=== PATIENT | female | born 1970 | race American Indian/Alaskan Native ===

== ENCOUNTER 2017-02-09 12:42 | Emergency (ER) | payer SELFPAY ==
--- NOTE | 2017-02-09 12:50 | Emergency Department Report ---
Chief Complaint: Abdominal Pain Stated Complaint: LWR ABD PAIN/VAG ITCHING Time Seen by Provider: 02/09/17 12:47 - HPI History of Present Illness: PT c/o "pain in my belly bottom" - ROS Review of Systems: + dysuria lmp January 2017 - Exam Physical Exam: obese female steady gait no acute distress MSE screening note: Focused history and physical exam performed. Due to findings the following was ordered: labs ED Disposition for MSE Condition: Stable
[2017-02-09 12:51] VITALS: BP 151/89
[2017-02-09 14:05] LABS: Bilirubin,Urine NEG (Negative); Blood,Urine SM (Negative); Ketones,Urine NEG (Negative); Leukocyte Esterase,Urine NEG (Negative); Mucus,Urine FEW /HPF; Nitrite,Urine NEG (Negative); Protein,Urine <15 mg/dL mg/dL (Negative); Urobilinogen,Urine < 2.0 mg/dL (<2.0)
--- NOTE | 2017-02-09 14:51 | Emergency Department Report ---
ED Female HPI - General Chief complaint: Urogenital-Female Stated complaint: LWR ABD PAIN/VAG ITCHING Time Seen by Provider: 02/09/17 12:47 Source: patient Mode of arrival: Ambulatory Limitations: No Limitations - History of Present Illness Initial comments: Patient is a 47-year-old female who presents to ED with complains of vaginal itching and discharge for the past few days. Patient also reports of having painful urination. Relates of also had some suprapubic pain. Denies any emesis , diarrhea, constipation, hematochezia or any other symptoms. MD Complaint: vaginal discharge Onset/Timin -: Gradual, days(s) Radiation: non-radiating Severity: moderate Severity scale (0 -10): 6 Quality: cramping Consistency: intermittent Improves with: none Worsens with: urination Are you Now?: No Associated Symptoms: denies other symptoms, vaginal discharge, vaginal bleeding , abdominal pain (suprapubic cramping), dysuria. denies: nausea/vomiting, fever /chills, headaches, loss of appetite, hematuria, rash, seizure, shortness of breath, syncope, weakness - Related Data Sexually active: Yes Previous Rx's Medication Instructions Recorded Last Taken Type Lidocaine Viscous 2% [Xylocaine 15 ml MM Q4H PRN #240 ml 06/02/13 Unknown Rx Viscous 2%] Amoxicillin [Amoxicillin TAB] 875 mg PO BID #20 tablet 11/20/13 Unknown Rx HYDROcodone/APAP 5-325 [[place] 1 each PO Q6HR PRN #12 tablet 11/20/13 Unknown Rx 5/325 mg] predniSONE [Deltasone] 40 mg PO QDAY #10 tab 11/20/13 Unknown Rx Fluconazole [Diflucan TAB] 150 mg PO ONCE #1 tablet 02/09/17 Unknown Rx metroNIDAZOLE [Flagyl] 500 mg PO Q12HR #14 tab 02/09/17 Unknown Rx Allergies Allergy/AdvReac Type Severity Reaction Status Date / Time No Known Allergies Allergy Unverified 06/02/13 08:25 ED Review of Systems ROS: Stated complaint: LWR ABD PAIN/VAG ITCHING Other details as noted in HPI Constitutional: denies: chills, fever Respiratory: denies: cough, shortness of breath, wheezing Cardiovascular: denies: chest pain, palpitations Gastrointestinal: denies: abdominal pain, nausea, diarrhea Genitourinary: dysuria, frequency. denies: urgency, hematuria, discharge, abnormal menses, dyspareunia Neurological: denies: headache, weakness, paresthesias Psychiatric: denies: anxiety, depression ED Past Medical Hx - Past Medical History Previous Medical History?: No - Surgical History Past Surgical History?: Yes Additional Surgical History: - Social History Smoking Status: Never Smoker Substance Use Type: None - Medications Home Medications: Home Medications Medication Instructions Recorded Confirmed Last Taken Type Lidocaine Viscous 2% [Xylocaine 15 ml MM Q4H PRN #240 ml 06/02/13 Unknown Rx Viscous 2%] Amoxicillin [Amoxicillin TAB] 875 mg PO BID #20 tablet 11/20/13 Unknown Rx HYDROcodone/APAP 5-325 [[place] 1 each PO Q6HR PRN #12 tablet 11/20/13 Unknown Rx 5/325 mg] predniSONE [Deltasone] 40 mg PO QDAY #10 tab 11/20/13 Unknown Rx Fluconazole [Diflucan TAB] 150 mg PO ONCE #1 tablet 02/09/17 Unknown Rx metroNIDAZOLE [Flagyl] 500 mg PO Q12HR #14 tab 02/09/17 Unknown Rx ED Physical Exam - General Limitations: No Limitations General appearance: alert, in no apparent distress - Eye Eye exam: Present: normal appearance - Respiratory Respiratory exam: Present: normal lung sounds bilaterally. Absent: respiratory distress - Cardiovascular Cardiovascular Exam: Present: regular rate, normal rhythm. Absent: systolic murmur, diastolic murmur, rubs, gallop - GI/Abdominal GI/Abdominal exam: Present: soft, normal bowel sounds. Absent: distended, tenderness, guarding, rebound, rigid, diminished bowel sounds - External exam: Present: normal external exam. Absent: erythema, swelling, lesions, lacerations, ecchymosis, bleeding Speculum exam: Present: vaginal discharge. Absent: erythema, cervical discharge , vaginal bleeding, foreign body, tissue, laceration Bi-manual exam: Present: normal bi-manual exam. Absent: cervical motion tendernes, adnexal tenderness, adnexal mass, uterine enlargement, uterine tenderness - Neurological Exam Neurological exam: Present: alert, oriented X3 - Psychiatric Psychiatric exam: Present: normal affect, normal mood - Skin Skin exam: Present: warm, dry, intact, normal color. Absent: rash ED Course Vital Signs 02/09/17 12:49 Temperature 98.6 F Pulse Rate 84 Respiratory 16 Rate Blood Pressure 151/89 O2 Sat by Pulse 99 Oximetry ED Medical Decision Making - Medical Decision Making Nad, patient is resting comfortably. Wet prep reveasl < 20% clue cells. NO trich or yeast. UA does not reveal UTI. Will give flagyl and diflucan to go home wiht. Will also treat for possible std. advised follow up with [facility] in 2- 3 days. - Differential Diagnosis BV, vaginitis, dysuria, vaginal irritation Critical care attestation.: If time is entered above; I have spent that time in minutes in the direct care of this critically ill patient, excluding procedure time. ED Disposition Clinical Impression: BV (bacterial vaginosis) Vaginitis Qualifiers: Chronicity: acute Qualified Code(s): N76.0 - Acute vaginitis Disposition: - TO HOME OR SELFCARE Is pt being admited?: No Does the pt Need Aspirin: No Condition: Stable Instructions: Bacterial Vaginosis (ED) Prescriptions: Fluconazole [Diflucan TAB] 150 mg PO ONCE #1 tablet metroNIDAZOLE [Flagyl] 500 mg PO Q12HR #14 tab Referrals: LAURA ROWE MD [Staff Physician] - 3-5 Days Forms: STI Treatment and Prevention Time of Disposition: 16:54
[2017-02-09] MEDS ORDERED: XYLOCAINE 1% MPF 5 mL INFILTRATI ONE (16:19)
[2017-02-09] MEDS ORDERED: ZITHROMAX PO ONE (16:19)
[2017-02-09] MEDS ORDERED: ROCEPHIN IM ONE (16:19)
== END 2017-02-09 17:03 | disposition home or self-care (01) ==
LOC: ED 12:42
DX: N76.0 Acute vaginitis (principal); B96.89 Other specified bacterial agents as the cause of diseases classified elsewhere
CPT/HCPCS: 81001; 81025; 87210; 87591; 96372; 99284; J0696

== ENCOUNTER 2017-12-03 18:42 | Emergency (ER) | payer SELFPAY ==
[2017-12-03 19:16] LABS: Basophils % (Auto) 0.4 % (0.0-1.8); Eosinophils % (Auto) 0.6 % (0.0-4.3); Hematocrit 37.4 % (30.3-42.9); Hemoglobin 12.8 gm/dl (10.1-14.3); Lymphocytes # (Auto) 1.9 K/mm3 (1.2-5.4); Lymphocytes % (Auto) 27.6 % (13.4-35.0); Mean Corpuscular HGB Conc 34 % (30-34); Mean Corpuscular Hemoglobin 32 pg (28-32); Mean Corpuscular Volume 95 fl (79-97); Monocytes # (Auto) 0.5 K/mm3 (0.0-0.8); Monocytes % (Auto) 7.3 % (0.0-7.3); Platelet Count 360 K/mm3 (140-440); Red Blood Count 3.95 M/mm3 (3.65-5.03); Red Cell Distribution Width 14.6 % (13.2-15.2)
[2017-12-03 19:30] LABS: Alanine Aminotransferase 10 units/L (7-56); Albumin 4.3 g/dL (3.9-5); BUN/Creatinine Ratio 20; Blood Urea Nitrogen 12 mg/dL (7-17); Calcium 9.4 mg/dL (8.4-10.2); Hemolysis Index 3
--- NOTE | 2017-12-03 22:47 | Emergency Department Report ---
ED Abdominal Pain HPI - General Chief Complaint: Abdominal Pain Stated Complaint: ABD PAIN Time Seen by Provider: 12/03/17 22:46 Source: patient Mode of arrival: Ambulatory Limitations: No Limitations - History of Present Illness Initial Comments: Patient complains of intermittent sharp abdominal pain for the last day or so. Discomfort is localized in the upper right quadrant area, last a variable amount of time, generally minutes, but can be longer, and subsides also for verbal. Time, and can be gone hours without any exacerbation, and patient finds it difficult to express whether there is any particular association with food or not. She has had some increased belching, and on examination from [place] recently, where she lived until about a month ago, she reports that she was told at time of left inguinal hernia repair in May 2017, that she also had some gallstones as well, but she has not had a cholecystectomy. She has a history of gastritis and GERD, but this is predominantly a epigastric and esophageal burning sensation, which she has previously treated with antacids when she lived in [place]. She takes nothing for this now, having lived here over the past month. She also believes that this is related to having been prescribed venlafaxine for chronic depression, as she is told that she has anxiety disorder, and this was prescribed to control her symptoms. She felt like it has caused much of her symptoms, and she stopped taking it recently after several doses. She is not having the past couple of days. She has not had antidepressants on a chronic basis and has no prior history of antidepressant use. She's had some nausea, no vomiting, no diarrhea, no melena , no hematemesis, no hematochezia. Past medical history is significant for hernia repair, May 2017, with subsequent 70 pound weight loss as well. She also has a history of type 2 diabetes mellitus, controlled with metformin. MD Complaint: abdominal pain (epigastric and right upper quadrant) Onset/Timin -: Gradual, Sudden Location: RUQ Radiation: none Migration to: no migration Severity scale (0 -10): 7 Quality: cramping Consistency: intermittent Improves With: nothing Worsens With: eating Associated Symptoms: nausea. denies: vomiting, diarrhea, fever, chills, constipation, dysuria - Related Data Previous Rx's Medication Instructions Recorded Last Taken Type Lidocaine Viscous 2% [Xylocaine 15 ml MM Q4H PRN #240 ml 06/02/13 Unknown Rx Viscous 2%] Amoxicillin [Amoxicillin TAB] 875 mg PO BID #20 tablet 11/20/13 Unknown Rx HYDROcodone/APAP 5-325 [[place] 1 each PO Q6HR PRN #12 tablet 11/20/13 Unknown Rx 5/325 mg] predniSONE [Deltasone] 40 mg PO QDAY #10 tab 11/20/13 Unknown Rx Fluconazole [Diflucan TAB] 150 mg PO ONCE #1 tablet 02/09/17 Unknown Rx metroNIDAZOLE [Flagyl] 500 mg PO Q12HR #14 tab 02/09/17 Unknown Rx Dicyclomine [Bentyl] 10 mg PO QID PRN #20 capsule 12/03/17 Unknown Rx FLUoxetine HCL [Prozac] 10 mg PO DAILY #30 capsule 12/03/17 Unknown Rx Omeprazole 20 mg PO DAILY #30 tablet.dr 12/03/17 Unknown Rx Ondansetron [Zofran ODT TAB] 8 mg PO Q8HR PRN #10 tab.rapdis 12/03/17 Unknown Rx Allergies Allergy/AdvReac Type Severity Reaction Status Date / Time No Known Allergies Allergy Unverified 06/02/13 08:25 ED Review of Systems ROS: Stated complaint: ABD PAIN Other details as noted in HPI Comment: All other systems reviewed and negative Constitutional: denies: chills, diaphoresis, fever, malaise Eyes: denies: eye pain, eye discharge, vision change ENT: denies: ear pain, throat pain Respiratory: denies: cough, shortness of breath, wheezing Cardiovascular: denies: chest pain, palpitations Endocrine: no symptoms reported Gastrointestinal: as per HPI, abdominal pain (right upper quadrant), nausea. denies: vomiting Genitourinary: denies: urgency, dysuria Musculoskeletal: denies: back pain, joint swelling, arthralgia Skin: denies: rash, lesions Neurological: denies: headache, weakness, paresthesias Psychiatric: anxiety. denies: depression ED Past Medical Hx - Past Medical History Hx Diabetes: Yes Hx GERD: Yes - Surgical History Past Surgical History?: Yes Additional Surgical History: , Hernia surgery in [facility] 2018 - Social History Smoking Status: Never Smoker Substance Use Type: None - Medications Home Medications: Home Medications Medication Instructions Recorded Confirmed Last Taken Type Lidocaine Viscous 2% [Xylocaine 15 ml MM Q4H PRN #240 ml 06/02/13 Unknown Rx Viscous 2%] Amoxicillin [Amoxicillin TAB] 875 mg PO BID #20 tablet 11/20/13 Unknown Rx HYDROcodone/APAP 5-325 [[place] 1 each PO Q6HR PRN #12 tablet 11/20/13 Unknown Rx 5/325 mg] predniSONE [Deltasone] 40 mg PO QDAY #10 tab 11/20/13 Unknown Rx Fluconazole [Diflucan TAB] 150 mg PO ONCE #1 tablet 02/09/17 Unknown Rx metroNIDAZOLE [Flagyl] 500 mg PO Q12HR #14 tab 02/09/17 Unknown Rx Dicyclomine [Bentyl] 10 mg PO QID PRN #20 capsule 12/03/17 Unknown Rx FLUoxetine HCL [Prozac] 10 mg PO DAILY #30 capsule 12/03/17 Unknown Rx Omeprazole 20 mg PO DAILY #30 tablet. 12/03/17 Unknown Rx Ondansetron [Zofran ODT TAB] 8 mg PO Q8HR PRN #10 tab.rapdis 12/03/17 Unknown Rx ED Physical Exam - General Limitations: No Limitations General appearance: alert, in no apparent distress - Head Head exam: Present: atraumatic, normocephalic - Eye Eye exam: Present: PERRL, EOMI - ENT ENT exam: Present: mucous membranes moist - Neck Neck exam: Present: normal inspection, full ROM. Absent: tenderness, meningismus - Respiratory Respiratory exam: Present: normal lung sounds bilaterally. Absent: respiratory distress, wheezes, rhonchi - Cardiovascular Cardiovascular Exam: Present: regular rate, normal heart sounds. Absent: systolic murmur, diastolic murmur - GI/Abdominal GI/Abdominal exam: Present: soft, tenderness (predominant right upper quadrant, but no guarding, no rebound), normal bowel sounds. Absent: guarding, rebound - Rectal Rectal exam: Present: deferred - Extremities Exam Extremities exam: Present: normal inspection. Absent: pedal edema - Back Exam Back exam: Present: normal inspection. Absent: CVA tenderness (R), CVA tenderness (L) - Neurological Exam Neurological exam: Present: alert, oriented X3 - Psychiatric Psychiatric exam: Present: normal affect, normal mood - Skin Skin exam: Present: warm, dry. Absent: rash, abrasion, ecchymosis ED Course Vital Signs 12/03/17 12/03/17 18:47 22:51 Temperature 98.4 F Pulse Rate 74 Respiratory 16 18 Rate Blood Pressure 103/74 O2 Sat by Pulse 98 98 Oximetry ED Medical Decision Making - Lab Data Result diagrams: 12/03/17 19:08 12/03/17 19:07 - Medical Decision Making Patient has essentially benign examination, showing minimal discomfort to palpation in the right upper quadrant. Brief focused [id number] ultrasound examination was unrevealing, as gallbladder was not easily visualized, but there was no free fluid in Morison's pouch, and liver contours appear normal. No other examination was performed intra-abdominal A by ultrasound examination. Laboratory examination is unremarkable. Patient's laboratory finding is unremarkable, and she clearly feels that symptoms have been caused by her antidepressant, and when asked if she would like another antidepressant, she quickly accepted. We will start her on Prozac , at a moderate dose of 10 mg daily. She should follow with local health clinic , but she has no routine physician here. Given she also has symptoms of GERD, we will start her on omeprazole, and I will give her symptomatic treatment with Bentyl, ondansetron, and bland diet. - Differential Diagnosis GERD, cholecystitis, fatty liver Critical Care Time: No Critical care attestation.: If time is entered above; I have spent that time in minutes in the direct care of this critically ill patient, excluding procedure time. ED Disposition Clinical Impression: Abdominal pain Qualifiers: Abdominal location: right upper quadrant Qualified Code(s): R10.11 - Right upper quadrant pain GERD (gastroesophageal reflux disease) Qualifiers: Esophagitis presence: without esophagitis Qualified Code(s): K21.9 - Gastro- esophageal reflux disease without esophagitis Disposition: DC-01 TO HOME OR SELFCARE Is pt being admited?: No Does the pt Need Aspirin: No Condition: Stable Instructions: Abdominal Pain (ED) Additional Instructions: We are change in urinary antidepressant, stop taking venlafaxine, and start taking Prozac once daily. Follow with the [facility] in the next week, to assess how you're doing, and to obtain refills on these medications. We are also starting anti-acid medication, omeprazole, 20 mg, to be taken once daily, and this will decrease acid production. He do not need to take ranitidine while you are taken omeprazole. Follow-up bland diet, as this will decrease stimulation of stomach acid. We are prescribing ondansetron, which is if you have any recurrent nausea, and you may repeat this up to 3 times per day. We are also prescribing Bentyl, which he can take for cramping as well. Have repeat examination at this outside clinic, and we have provided contact information for you to make arrangements to follow-up. Prescriptions: Dicyclomine [Bentyl] 10 mg PO QID PRN #20 capsule PRN Reason: cramping FLUoxetine HCL [Prozac] 10 mg PO DAILY #30 capsule Omeprazole 20 mg PO DAILY #30 tablet. Ondansetron [Zofran ODT TAB] 8 mg PO Q8HR PRN #10 tab.rapdis PRN Reason: Nausea [facility] - [facility] Time of Disposition: 23:44
[2017-12-03 23:03] LABS: Bilirubin,Urine NEG (Negative); Blood,Urine SM (Negative); Color,Urine Yellow (Yellow); Mucus,Urine FEW /HPF; Protein,Urine <15 mg/dL mg/dL (Negative); Urobilinogen,Urine < 2.0 mg/dL (<2.0); WBC,Urine < 1.0 /HPF (0.0-6.0)
[2017-12-03] MEDS ORDERED: ZOFRAN ODT PO ONE (23:47)
[2017-12-03 23:59] VITALS: BP 149/64
[2017-12-04] MEDS ORDERED: BENTYL ONE (00:05)
[2017-12-04] MEDS ORDERED: BENTYL PO ONE (23:46)
[2017-12-04] MEDS ORDERED: PROTONIX PO ONE (23:46)
== END 2017-12-04 00:14 | disposition home or self-care (01) ==
LOC: ED 18:42
DX: K21.9 Gastro-esophageal reflux disease without esophagitis (principal); E11.9 Type 2 diabetes mellitus without complications; Z79.899 Other long term (current) drug therapy
CPT/HCPCS: 36415; 80053; 81001; 84703; 85025; 99283; Q0162

== ENCOUNTER 2017-12-21 16:52 | Emergency (ER) | payer SELFPAY ==
[2017-12-21 19:04] LABS: Basophils % (Auto) 0.3 % (0.0-1.8); Eosinophils # (Auto) 0.1 K/mm3 (0.0-0.4); Eosinophils % (Auto) 1.1 % (0.0-4.3); Lymphocytes # (Auto) 1.9 K/mm3 (1.2-5.4); Lymphocytes % (Auto) 29.2 % (13.4-35.0); Mean Corpuscular HGB Conc 34 % (30-34); Mean Corpuscular Hemoglobin 33 pg (28-32); Mean Corpuscular Volume 97 fl (79-97); Monocytes # (Auto) 0.5 K/mm3 (0.0-0.8); Platelet Count 321 K/mm3 (140-440); Red Blood Count 3.71 M/mm3 (3.65-5.03); Red Cell Distribution Width 14.6 % (13.2-15.2)
[2017-12-21 19:23] LABS: Alanine Aminotransferase 9 units/L (7-56); BUN/Creatinine Ratio 23; Blood Urea Nitrogen 14 mg/dL (7-17); Calcium 9.2 mg/dL (8.4-10.2); Hemolysis Index 3
[2017-12-22 00:37] LABS: Bilirubin,Urine NEG (Negative); Blood,Urine NEG (Negative); Calcium Oxalate Crystals,Urine FEW; Color,Urine Yellow (Yellow); Hyaline Casts,Urine 1 /LPF; Mucus,Urine 1+ /HPF; Protein,Urine <15 mg/dL mg/dL (Negative); Urobilinogen,Urine < 2.0 mg/dL (<2.0); WBC,Urine < 1.0 /HPF (0.0-6.0)
--- NOTE | 2017-12-22 03:13 | Emergency Department Report ---
ED Abdominal Pain HPI - General Chief Complaint: Abdominal Pain Stated Complaint: ABDOMINAL PAIN Time Seen by Provider: 12/22/17 01:06 Source: patient Mode of arrival: Ambulatory Limitations: No Limitations - History of Present Illness MD Complaint: abdominal pain -: week(s) (1) Location: periumbilical Radiation: none Migration to: no migration Severity: mild Severity scale (0 -10): 2 Quality: aching Consistency: intermittent Improves With: nothing Worsens With: nothing Context: other (history of gastritis) Associated Symptoms: nausea. denies: vomiting, diarrhea, fever, chills, constipation, dysuria, hematemesis, hematochezia, melena, hematuria, anorexia, syncope - Related Data Previous Rx's Medication Instructions Recorded Last Taken Type Lidocaine Viscous 2% [Xylocaine 15 ml MM Q4H PRN #240 ml 06/02/13 Unknown Rx Viscous 2%] Amoxicillin [Amoxicillin TAB] 875 mg PO BID #20 tablet 11/20/13 Unknown Rx HYDROcodone/APAP 5-325 [[place] 1 each PO Q6HR PRN #12 tablet 11/20/13 Unknown Rx 5/325 mg] predniSONE [Deltasone] 40 mg PO QDAY #10 tab 11/20/13 Unknown Rx Fluconazole [Diflucan TAB] 150 mg PO ONCE #1 tablet 02/09/17 Unknown Rx metroNIDAZOLE [Flagyl] 500 mg PO Q12HR #14 tab 02/09/17 Unknown Rx Dicyclomine [Bentyl] 10 mg PO QID PRN #20 capsule 12/03/17 Unknown Rx FLUoxetine HCL [Prozac] 10 mg PO DAILY #30 capsule 12/03/17 Unknown Rx Omeprazole 20 mg PO DAILY #30 tablet.dr 12/03/17 Unknown Rx Ondansetron [Zofran ODT TAB] 8 mg PO Q8HR PRN #10 tab.rapdis 12/03/17 Unknown Rx Famotidine [Pepcid] 20 mg PO QDAY #14 tablet 12/22/17 Unknown Rx Allergies Allergy/AdvReac Type Severity Reaction Status Date / Time No Known Allergies Allergy Unverified 06/02/13 08:25 ED Review of Systems ROS: Stated complaint: ABDOMINAL PAIN Other details as noted in HPI Other: GENERAL: No weight change, fatigue, weakness, fever, chills, or night sweats SKIN: No changes in skin or hair, no itching, no rashes, no jaundice HEAD: No trauma, headache, or visual changes EYES: No blurriness, tearing, itching, acute visual loss, conjunctival discoloration, or scleral icterus EARS: No hearing loss, tinnitus, vertigo, or earache NOSE: No rhinorrhea, stuffiness, sneezing, itching, or epistaxis MOUTH: No bleeding gums, hoarseness, sore throat, or swelling CARDIAC: No new murmur, chest pain, palpitations, dyspnea on exertion, orthopnea , PND, or edema RESPIRATORY: No shortness of breath, wheeze, cough, sputum production, hemoptysis, pneumonia, asthma, bronchitis, or emphysema GI: No change in appetite, vomiting, dysphagia, change in bowel frequency, diarrhea, constipation, bleeding, hematemesis, melena, hematochezia URINARY: No frequency, urgency, polyuria, dysuria, hematuria, or incontinence MUSCULOSKELETAL: No muscle weakness, joint stiffness, decrease in range of motion, redness, swelling NEUROLOGIC: No loss of sensation, numbness, tingling, tremors, weakness, paralysis, seizures HEMATOLOGIC: No anemia, easy bruising, bleeding, petechiae, or purpura ENDOCRINE: No hot or cold intolerance, sweating, polyuria, polydipsia or, polyphagia no thyroid problems PSYCHIATRIC: No change in mood, no anxiety, no depression ED Past Medical Hx - Past Medical History Hx Diabetes: Yes Hx GERD: Yes - Surgical History Additional Surgical History: , Hernia surgery in [facility] 2018 - Social History Smoking Status: Never Smoker Substance Use Type: None - Medications Home Medications: Home Medications Medication Instructions Recorded Confirmed Last Taken Type Lidocaine Viscous 2% [Xylocaine 15 ml MM Q4H PRN #240 ml 06/02/13 Unknown Rx Viscous 2%] Amoxicillin [Amoxicillin TAB] 875 mg PO BID #20 tablet 11/20/13 Unknown Rx HYDROcodone/APAP 5-325 [[place] 1 each PO Q6HR PRN #12 tablet 11/20/13 Unknown Rx 5/325 mg] predniSONE [Deltasone] 40 mg PO QDAY #10 tab 11/20/13 Unknown Rx Fluconazole [Diflucan TAB] 150 mg PO ONCE #1 tablet 02/09/17 Unknown Rx metroNIDAZOLE [Flagyl] 500 mg PO Q12HR #14 tab 02/09/17 Unknown Rx Dicyclomine [Bentyl] 10 mg PO QID PRN #20 capsule 12/03/17 Unknown Rx FLUoxetine HCL [Prozac] 10 mg PO DAILY #30 capsule 12/03/17 Unknown Rx Omeprazole 20 mg PO DAILY #30 tablet. 12/03/17 Unknown Rx Ondansetron [Zofran ODT TAB] 8 mg PO Q8HR PRN #10 tab.rapdis 12/03/17 Unknown Rx Famotidine [Pepcid] 20 mg PO QDAY #14 tablet 12/22/17 Unknown Rx ED Physical Exam - General Limitations: No Limitations - Other Other exam information: GENERAL: Patient in no acute distress HEAD: Normocephalic, atraumatic EYES: PERRLA, EOM intact, no scleral icterus, no papilledema, no conjunctival hemorrhage, visual mcdaniel and acuity wnl, NOSE: No tenderness, discharge, sinus tenderness MOUTH: No erythema, bleeding, exudate HEART: Regular rate and rhythm, no murmur, S1-S2 are auscultated, pulses are symmetric LUNGS: No wheezing, rales, rhonchi, bilateral breath sounds ABDOMEN: Normal bowel sounds, no tenderness, no rebound, no guarding, no masses , no CVA tenderness MUSCULOSKELETAL: Normal joint range of motion, no redness, no swelling, no tenderness NEUROLOGIC: GCS 15, Alert and Oriented x3, Cranial nerves intact, normal sensation, normal strength, normal gait, no cerebellar deficit PSYCHIATRIC: No homicidal or suicidal ideation, no anxiety, no depression, no hallucinations SKIN: Skin is warm and dry, no wounds, no rashes ED Course Vital Signs 12/21/17 12/22/17 12/22/17 17:23 01:48 01:56 Temperature 98.5 F Pulse Rate 76 70 Respiratory 18 17 20 Rate Blood Pressure 111/74 O2 Sat by Pulse 97 100 Oximetry 12/22/17 12/22/17 12/22/17 02:09 02:15 02:31 Temperature Pulse Rate 69 69 79 Respiratory 16 23 19 Rate Blood Pressure 142/67 142/67 142/67 O2 Sat by Pulse 100 100 Oximetry 12/22/17 12/22/17 12/22/17 02:45 03:01 03:15 Temperature Pulse Rate 76 82 84 Respiratory 18 20 21 Rate Blood Pressure 142/67 142/67 142/67 O2 Sat by Pulse 100 100 97 Oximetry 12/22/17 03:31 Temperature Pulse Rate 69 Respiratory 14 Rate Blood Pressure 118/68 O2 Sat by Pulse 68 L Oximetry ED Medical Decision Making - Lab Data Result diagrams: 12/21/17 18:08 12/21/17 18:08 Laboratory Results - last 24 hr 12/21/17 12/21/17 12/21/17 18:08 18:08 23:50 WBC 6.7 RBC 3.71 Hgb 12.0 Hct 36.0 MCV 97 MCH 33 H MCHC 34 RDW 14.6 Plt Count 321 Lymph % (Auto) 29.2 [place] % (Auto) 7.0 Eos % (Auto) 1.1 Baso % (Auto) 0.3 Lymph # 1.9 [place] # 0.5 Eos # 0.1 Baso # 0.0 Seg Neutrophils % 62.4 Seg Neutrophils # 4.2 Sodium 141 Potassium 4.0 Chloride 102.3 Carbon Dioxide 28 Anion Gap 15 BUN 14 Creatinine 0.6 L Estimated GFR > 60 BUN/Creatinine Ratio 23 Glucose 100 Calcium 9.2 Total Bilirubin 0.70 AST 11 ALT 9 Alkaline Phosphatase 77 Troponin T Total Protein 7.5 Albumin 4.0 Albumin/Globulin Ratio 1.1 Lipase Urine Color Yellow Urine Turbidity Clear Urine pH 5.0 Ur Specific [place] 1.030 Urine Protein <15 mg/dl Urine Glucose (UA) Neg Urine Ketones Neg Urine Blood Neg Urine Nitrite Neg Urine Bilirubin Neg Urine Urobilinogen < 2.0 Ur Leukocyte Esterase Neg Urine WBC (Auto) < 1.0 Urine RBC (Auto) 4.0 U Epithel Cells (Auto) 4.0 Calcium Oxalate Crystal Few Hyaline Casts 1 Urine Mucus 1+ 12/22/17 12/22/17 01:20 02:19 WBC RBC Hgb Hct MCV MCH MCHC RDW Plt Count Lymph % (Auto) [place] % (Auto) Eos % (Auto) Baso % (Auto) Lymph # [place] # Eos # Baso # Seg Neutrophils % Seg Neutrophils # Sodium Potassium Chloride Carbon Dioxide Anion Gap BUN Creatinine Estimated GFR BUN/Creatinine Ratio Glucose Calcium Total Bilirubin AST ALT Alkaline Phosphatase Troponin T < 0.010 Total Protein Albumin Albumin/Globulin Ratio Lipase 15 Urine Color Urine Turbidity Urine pH Ur Specific [place] Urine Protein Urine Glucose (UA) Urine Ketones Urine Blood Urine Nitrite Urine Bilirubin Urine Urobilinogen Ur Leukocyte Esterase Urine WBC (Auto) Urine RBC (Auto) U Epithel Cells (Auto) Calcium Oxalate Crystal Hyaline Casts Urine Mucus - Radiology Data Radiology results: report reviewed - Medical Decision Making Patient comfortable. Updated with results. Plan discharge with outpatient follow up. Patient agrees with plan and will return if symptoms worsen. Critical care attestation.: If time is entered above; I have spent that time in minutes in the direct care of this critically ill patient, excluding procedure time. ED Disposition Clinical Impression: Abdominal pain Qualifiers: Abdominal location: unspecified location Qualified Code(s): R10.9 - Unspecified abdominal pain Disposition: TO HOME OR SELFCARE Is pt being admited?: No Condition: Stable Instructions: Abdominal Pain (ED) Prescriptions: Famotidine [Pepcid] 20 mg PO QDAY #14 tablet Referrals: [facility] [Outside] - 2-3 Days [facility] [Outside] - 2-3 Days [facility] [Provider Group] - 2-3 Days Time of Disposition: 03:11
--- NOTE | 2017-12-22 03:14 | XRay Report ---
FINAL REPORT EXAM: XRAY ACUTE ABDOMEN SERIES W/ 1V CHEST HISTORY: abd.pain TECHNIQUE: A PA view of the chest was obtained along with two views of the abdomen and pelvis. FINDINGS: The chest reveals normal heart size and mediastinum. The lungs are clear. Pleural fluid is not seen. The bones and soft tissues are well maintained. The abdominal bowel gas pattern is unremarkable. There is an eggshell type calcification in the right upper outer quadrant. Whether this is related to a gallstone or porcelain gallbladder is uncertain. The bones and soft tissues otherwise do not show any acute changes. IMPRESSION: No acute process in the chest. Unremarkable bowel gas pattern. No acute process identified. Eggshell type calcification in the right upper quadrant. Whether this represents a gallstone or porcelain gallbladder is uncertain.
[2017-12-22 03:40] VITALS: BP 118/68
== END 2017-12-22 03:42 | disposition home or self-care (01) ==
LOC: ED 16:52
DX: R10.33 Periumbilical pain (principal); E11.9 Type 2 diabetes mellitus without complications; K21.9 Gastro-esophageal reflux disease without esophagitis
CPT/HCPCS: 36415; 74022; 80053; 81001; 83690; 84484; 85025

== ENCOUNTER 2018-10-20 13:32 | Emergency (ER) | payer OTHER ==
[2018-10-20 13:54] VITALS: BP 125/69
--- NOTE | 2018-10-20 15:52 | Emergency Department Report ---
- General Chief complaint: Skin Rash Stated complaint: RASH ALL OVER BODY Time Seen by Provider: 10/20/18 13:52 Source: patient Mode of arrival: Ambulatory Limitations: No Limitations - History of Present Illness Initial comments: Pt is a 48 yo female who presents to the emergency room with c/o a rash to the BLE, BUE, and one area on the chest that began two days ago. She states the rash is itching. She states that two nights ago she spent the night at a friend's house and felt like something was biting her. She did not see the bug bite her. She has never had before. She denies any difficulty breathing, SOB, or throat swelling. She denies any new medications, foods, lotions, soaps, or detergents. - Related Data Previous Rx's Medication Instructions Recorded Last Taken Type Lidocaine Viscous 2% [Xylocaine 15 ml MM Q4H PRN #240 ml 06/02/13 Unknown Rx Viscous 2%] Dicyclomine [Bentyl] 10 mg PO QID PRN #20 capsule 12/03/17 Unknown Rx FLUoxetine HCL [Prozac] 10 mg PO DAILY #30 capsule 12/03/17 Unknown Rx Ondansetron [Zofran ODT TAB] 8 mg PO Q8HR PRN #10 tab.rapdis 12/03/17 Unknown Rx Famotidine [Pepcid] 20 mg PO QDAY #14 tablet 12/22/17 Unknown Rx Permethrin [Elimite] 60 gm TP ONCE #1 cream..g. 10/20/18 Unknown Rx Allergies Allergy/AdvReac Type Severity Reaction Status Date / Time No Known Allergies Allergy Unverified 06/02/13 08:25 Abscess Boil HPI - HPI Chief Complaint: Skin Rash Stated Complaint: RASH ALL OVER BODY Time Seen by Provider: 10/20/18 13:52 Home Medications: Previous Rx's Medication Instructions Recorded Last Taken Type Lidocaine Viscous 2% [Xylocaine 15 ml MM Q4H PRN #240 ml 06/02/13 Unknown Rx Viscous 2%] Dicyclomine [Bentyl] 10 mg PO QID PRN #20 capsule 12/03/17 Unknown Rx FLUoxetine HCL [Prozac] 10 mg PO DAILY #30 capsule 12/03/17 Unknown Rx Ondansetron [Zofran ODT TAB] 8 mg PO Q8HR PRN #10 tab.rapdis 12/03/17 Unknown Rx Famotidine [Pepcid] 20 mg PO QDAY #14 tablet 12/22/17 Unknown Rx Permethrin [Elimite] 60 gm TP ONCE #1 cream..g. 10/20/18 Unknown Rx Allergies/Adverse Reactions: Allergies Allergy/AdvReac Type Severity Reaction Status Date / Time No Known Allergies Allergy Unverified 06/02/13 08:25 ED Review of Systems ROS: Stated complaint: RASH ALL OVER BODY Other details as noted in HPI Comment: All other systems reviewed and negative ED Past Medical Hx - Past Medical History Previous Medical History?: Yes Hx Diabetes: Yes Hx GERD: Yes - Surgical History Past Surgical History?: Yes Additional Surgical History: , Hernia surgery in [facility] 2018 - Social History Smoking Status: Never Smoker Substance Use Type: None - Medications Home Medications: Home Medications Medication Instructions Recorded Confirmed Last Taken Type Lidocaine Viscous 2% [Xylocaine 15 ml MM Q4H PRN #240 ml 06/02/13 Unknown Rx Viscous 2%] Dicyclomine [Bentyl] 10 mg PO QID PRN #20 capsule 12/03/17 Unknown Rx FLUoxetine HCL [Prozac] 10 mg PO DAILY #30 capsule 12/03/17 Unknown Rx Ondansetron [Zofran ODT TAB] 8 mg PO Q8HR PRN #10 tab.rapdis 12/03/17 Unknown Rx Famotidine [Pepcid] 20 mg PO QDAY #14 tablet 12/22/17 Unknown Rx Permethrin [Elimite] 60 gm TP ONCE #1 cream..g. 10/20/18 Unknown Rx ED Physical Exam - General Limitations: No Limitations General appearance: alert, in no apparent distress - Head Head exam: Present: atraumatic, normocephalic - Eye Eye exam: Present: normal appearance - ENT ENT exam: Present: normal orophraynx, mucous membranes moist, other (dental implant in place, no angioedema, uvula is midline and without edema) - Respiratory Respiratory exam: Absent: respiratory distress - Cardiovascular Cardiovascular Exam: Present: regular rate - Neurological Exam Neurological exam: Present: alert, oriented X3 - Psychiatric Psychiatric exam: Present: normal affect, normal mood - Skin Skin exam: Present: warm, dry, other (small erythematous papules to the BUE, BLE, and one small papule to the left side of the chest) ED Course Vital Signs 10/20/18 13:53 Temperature 98.1 F Pulse Rate 70 Respiratory 16 Rate Blood Pressure 125/69 O2 Sat by Pulse 100 Oximetry ED Medical Decision Making - Medical Decision Making Pt is a 48 yo female who presents to the emergency room with c/o a rash to the BLE, BUE, and one area on the chest that began two days ago. She states the rash is itching. She states that two nights ago she spent the night at a friend's house and felt like something was biting her. She did not see the bug bite her. She has never had before. She denies any difficulty breathing, SOB, or throat swelling. She denies any new medications, foods, lotions, soaps, or detergents. Examination consistent with bed bug bites. Advised pt to take her clothing and sheets and to throw them away, wash in hot water and bleach, or to seal in a trash bag for 7 days. Pt given permethrin cream and advised how to use. Pt also given refill to repeat in 10 days. Advised pt to please follow up with a primary care doctor in the next 2-3 days. Return to the emergency room for any new or worsening symptoms. - Differential Diagnosis bed bugs, scabies, contact derm, allergic reaction, insect bite Critical care attestation.: If time is entered above; I have spent that time in minutes in the direct care of this critically ill patient, excluding procedure time. ED Disposition Clinical Impression: Bed bug bite Qualifiers: Encounter type: initial encounter Qualified Code(s): W57.XXXA - Bitten or stung by nonvenomous insect and other nonvenomous arthropods, initial encounter Disposition: DC-01 TO HOME OR SELFCARE Is pt being admited?: No Does the pt Need Aspirin: No Condition: Stable Instructions: Insect Bite or Sting (ED) Additional Instructions: Please follow up with a primary care doctor in the next 2-3 days. Please use medication as prescribed, make sure the skin is dry and clean and leave on for 10 minutes. Will need to repeat medication in 10 days. May use over the counter benadryl for itching. Please throw away any items you were wearing, throw away sheets, or bleach in hot water, or may seal in a trash bag for 10 days. Prescriptions: Permethrin [Elimite] 60 gm TP ONCE #1 cream..g. Referrals: ENZO BROWNRHINECLIFF MD FIOR [Primary Care Provider] - 2-3 Days Time of Disposition: 15:51 Print Language: PASHTO
== END 2018-10-20 16:24 | disposition home or self-care (01) ==
LOC: ED 13:32
DX: S20.362A Insect bite (nonvenomous) of left front wall of thorax, initial encounter (principal); S20.361A Insect bite (nonvenomous) of right front wall of thorax, initial encounter; E11.9 Type 2 diabetes mellitus without complications; K21.9 Gastro-esophageal reflux disease without esophagitis; W57.XXXA Bitten or stung by nonvenomous insect and other nonvenomous arthropods, initial encounter; Y93.89 Activity, other specified; Y92.89 Other specified places as the place of occurrence of the external cause; Y99.8 Other external cause status
CPT/HCPCS: 99282

== ENCOUNTER 2018-12-20 09:48 | Emergency (ER) | payer SELFPAY ==
[2018-12-20 10:03] VITALS: BP 138/70
--- NOTE | 2018-12-20 10:17 | Emergency Department Report ---
HPI - General Chief Complaint: Extremity Injury, Lower Time Seen by Provider: 12/20/18 10:15 - HPI HPI: PT COMES INTO ER WITH GREAT TOE PAIN. NO TRAUMA. NO FALL. PT IS CONVINCED SHE GOT [place] THE OTHER [place]. NEUROVASC INTACT. PT IS AWARE OF GOUT AND HAS RESEARCHED IT AND SHE STATES HER DIET WOULD NOT CAUSE GOUT. SHE IS HERE TO BE TREATED FOR AN INSECT BITE. PT IS AMBULATORY AND NON TOXIC. ED Past Medical Hx - Past Medical History Previous Medical History?: Yes Hx Diabetes: Yes Hx GERD: Yes - Surgical History Past Surgical History?: Yes Hx Cholecystectomy: Yes Additional Surgical History: , Hernia surgery in [facility] 2018 - Social History Smoking Status: Never Smoker Substance Use Type: None - Medications Home Medications: Home Medications Medication Instructions Recorded Confirmed Last Taken Type Amoxicillin [Trimox CAP] 500 mg PO BID #20 capsule 12/20/18 Unknown Rx Naproxen [Naprosyn] 500 mg PO BID PRN #20 tablet 12/20/18 Unknown Rx predniSONE [Deltasone] 20 mg PO DAILY #5 tablet 12/20/18 Unknown Rx ED Review of Systems ROS: Stated complaint: RT TOE SWOLLEN Other details as noted in HPI Comment: All other systems reviewed and negative Physical Exam - Physical Exam Vital Signs: Vital Signs 12/20/18 09:53 Temperature 98.0 F Pulse Rate 82 Respiratory 16 Rate Blood Pressure 138/70 [Left] O2 Sat by Pulse 97 Oximetry Physical Exam: WDWN patient in NAD VS per RN flow sheet Alert and oriented to person, place and time. S1-S2. No S3 or S4. No systolic or diastolic murmur. No JVD. No pitting edema. Lungs clear to auscultation bilaterally anteriorly and posteriorly. Abdomen soft nontender bowel sounds X4 L GREAT TOE PAIN, NO TRAUMA TOE IS RED AND INFLAMED- NO HX GOUT NO NOTED BITE PT THINKS IS THE PROBLEM Moves all extremities well. Mood and affect appropriate. ED Course Vital Signs 12/20/18 09:53 Temperature 98.0 F Pulse Rate 82 Respiratory 16 Rate Blood Pressure 138/70 [Left] O2 Sat by Pulse 97 Oximetry ED Medical Decision Making - Medical Decision Making Vital Signs 12/20/18 09:53 Temperature 98.0 F Pulse Rate 82 Respiratory 16 Rate Blood Pressure 138/70 [Left] O2 Sat by Pulse 97 Oximetry PT HERE AND CONCERNED SHE WAS BIT BY AN INSECT - SHE WANTS TREATED FOR AN INSECT BITE AND SHE DOES NOT WANT TREATED FOR GOUT. WILL TREAT PT AND DC HER HOME WITH PCP FOLLOW UP SHE IS AMBULATORY AND NONTOXIC. Critical care attestation.: If time is entered above; I have spent that time in minutes in the direct care of this critically ill patient, excluding procedure time. ED Disposition Clinical Impression: Toe pain Disposition: DC-01 TO HOME OR SELFCARE Is pt being admited?: No Does the pt Need Aspirin: No Condition: Stable Instructions: Insect Bite or Sting (ED), Acute Gouty Arthritis (ED) Additional Instructions: DIET TOLERATED MEDS ORDERED TODAY IN ER FOLLOW INSTRUCTIONS ON THE BOTTLE FOLLOW UP PCP WITHIN 48 HOURS TO ENSURE YOU ARE GETTING BETTER ACTIVITY TOLERATED MOTRIN OR TYLENOL FOR PAIN OR FEVER RETURN TO THE ER FOR WORSENING SYMPTOMS NOT RELIEVED BY YOUR MEDICATIONS. IF TOE OR OTHER JOINT PAIN COMES BACK- SEE YOUR PCP FOR GOUT EVALUATION REFERRAL BELOW Prescriptions: predniSONE [Deltasone] 20 mg PO DAILY #5 tablet Naproxen [Naprosyn] 500 mg PO BID PRN #20 tablet PRN Reason: Pain Amoxicillin [Trimox CAP] 500 mg PO BID #20 capsule Referrals: COTY CEDENO MD [Primary Care Provider] - 3-5 Days Time of Disposition: 10:25
== END 2018-12-20 10:37 | disposition home or self-care (01) ==
LOC: ED 09:48
DX: M79.674 Pain in right toe(s) (principal); E11.9 Type 2 diabetes mellitus without complications; K21.9 Gastro-esophageal reflux disease without esophagitis; Z90.49 Acquired absence of other specified parts of digestive tract

== ENCOUNTER 2019-02-16 14:58 | Emergency (ER) | payer SELFPAY ==
[2019-02-16] MEDS ORDERED: CATAPRES PO ONE (15:16)
--- NOTE | 2019-02-16 15:16 | Emergency Department Report ---
Blank Doc - Documentation Documentation: This is a 49-year-old female that presents headache and HTN. Denies history of HTN. This initial assessment/diagnostic orders/clinical plan/treatment(s) is/are subject to change based on patient's health status, clinical progression and re- assessment by fellow clinical providers in the ED. Further treatment and workup at subsequent clinical providers discretion. Patient/guardians urged not to elope from the ED as their condition may be serious if not clinically assessed and managed. Initial orders include: 1- Patient sent to [facility] for further evaluation and treatment 2- catapress, RN to reevaluate vitals 3-labs 4- CT head
[2019-02-16 15:29] LABS: Basophils % (Auto) 0.4 % (0.0-1.8); Eosinophils # (Auto) 0.2 K/mm3 (0.0-0.4); Eosinophils % (Auto) 2.3 % (0.0-4.3); Hematocrit 38.3 % (30.3-42.9); Hemoglobin 12.8 gm/dl (10.1-14.3); Lymphocytes # (Auto) 1.7 K/mm3 (1.2-5.4); Lymphocytes % (Auto) 22.9 % (13.4-35.0); Mean Corpuscular HGB Conc 33 % (30-34); Mean Corpuscular Volume 97 fl (79-97); Monocytes # (Auto) 0.3 K/mm3 (0.0-0.8); Monocytes % (Auto) 4.4 % (0.0-7.3); Platelet Count 362 K/mm3 (140-440); Red Blood Count 3.96 M/mm3 (3.65-5.03); Red Cell Distribution Width 14.8 % (13.2-15.2)
[2019-02-16 16:16] LABS: BUN/Creatinine Ratio 25; Blood Urea Nitrogen 10 mg/dL (7-17); Calcium 9.2 mg/dL (8.4-10.2); Hemolysis Index 1
--- NOTE | 2019-02-16 16:36 | Cat Scan Report ---
CT BRAIN: 02/16/2019 INDICATION / CLINICAL INFORMATION: headache. COMPARISON: None available. FINDINGS: BRAIN/INTRACRANIAL STRUCTURES: Unenhanced CT images of the brain demonstrate no evidence of acute int racranial abnormality. Ventricles and sulci are normal in size and shape for a patient of this age. There is no evidence of hemorrhage or mass. There are no abnormal extra-axial fluid collections. EXTRACRANIAL STRUCTURES: Unremarkable. IMPRESSION: Negative unenhanced CT of the brain. All CT scans at this location are performed using dose reduction to ALARA by means of automated expos ure control. Signer Name: Sander Roche MD Signed: 02/16/2019 4:32 PM Workstation Name: [id number]
--- NOTE | 2019-02-16 21:50 | Emergency Department Report ---
ED General Adult HPI - General Chief complaint: High BP Stated complaint: HBP/ BURNING/ITCH VAGINAL Time Seen by Provider: 02/16/19 15:14 Source: patient Mode of arrival: Ambulatory Limitations: No Limitations - History of Present Illness Initial comments: pt is a 49 y/o female with hx of DMII, GERD, s/p cholecystectomy who presents for htn, dizziness, onset yesterday intermittent pt denies sob no cp no n/v no back pain , secondary complaint of urinary frequency and itching hx candidal infection. pt fever or chills no n/v Onset/Timin -: days(s) Location: head Radiation: non-radiation Severity scale (0 -10): 4 Quality: other (dizziness) Consistency: intermittent Improves with: rest Worsens with: movement Associated Symptoms: denies: chest pain, cough, diaphoresis, fever/chills, headaches, loss of appetite, malaise, nausea/vomiting, rash, seizure, shortness of breath, syncope, weakness Treatments Prior to Arrival: none - Related Data Previous Rx's Medication Instructions Recorded Last Taken Type Amoxicillin [Trimox CAP] 500 mg PO BID #20 capsule 12/20/18 Unknown Rx Naproxen [Naprosyn] 500 mg PO BID PRN #20 tablet 12/20/18 Unknown Rx predniSONE [Deltasone] 20 mg PO DAILY #5 tablet 12/20/18 Unknown Rx hydroCHLOROthiazide [HCTZ] 25 mg PO QDAY #30 tablet 02/16/19 Unknown Rx metFORMIN [Glucophage] 1,000 mg PO BID #120 tablet 02/16/19 Unknown Rx Allergies Allergy/AdvReac Type Severity Reaction Status Date / Time No Known Allergies Allergy Verified 02/16/19 15:04 ED Review of Systems ROS: Stated complaint: HBP/ BURNING/ITCH VAGINAL Other details as noted in HPI Constitutional: denies: chills, fever Eyes: denies: eye pain, eye discharge, vision change ENT: denies: ear pain, throat pain Respiratory: denies: cough, shortness of breath, wheezing Cardiovascular: denies: chest pain, palpitations Endocrine: no symptoms reported Gastrointestinal: denies: abdominal pain, nausea, diarrhea Genitourinary: denies: urgency, dysuria, discharge Musculoskeletal: denies: back pain, joint swelling, arthralgia Skin: denies: rash, lesions Neurological: denies: headache, weakness, numbness, paresthesias, confusion, abnormal gait, vertigo Psychiatric: denies: anxiety, depression Hematological/Lymphatic: denies: easy bleeding, easy bruising ED Past Medical Hx - Past Medical History Hx Diabetes: Yes Hx GERD: Yes - Surgical History Past Surgical History?: Yes Hx Cholecystectomy: Yes Additional Surgical History: , Hernia surgery in [facility] 2018 - Social History Smoking Status: Never Smoker Substance Use Type: Alcohol - Medications Home Medications: Home Medications Medication Instructions Recorded Confirmed Last Taken Type Amoxicillin [Trimox CAP] 500 mg PO BID #20 capsule 12/20/18 Unknown Rx Naproxen [Naprosyn] 500 mg PO BID PRN #20 tablet 12/20/18 Unknown Rx predniSONE [Deltasone] 20 mg PO DAILY #5 tablet 12/20/18 Unknown Rx hydroCHLOROthiazide [HCTZ] 25 mg PO QDAY #30 tablet 02/16/19 Unknown Rx metFORMIN [Glucophage] 1,000 mg PO BID #120 tablet 02/16/19 Unknown Rx ED Physical Exam - General Limitations: No Limitations General appearance: alert, in no apparent distress - Head Head exam: Present: atraumatic, normocephalic - Eye Eye exam: Present: normal appearance, PERRL, EOMI Pupils: Present: normal accommodation - ENT ENT exam: Present: mucous membranes moist - Neck Neck exam: Present: normal inspection. Absent: tenderness, meningismus, full ROM, lymphadenopathy, thyromegaly - Respiratory Respiratory exam: Present: normal lung sounds bilaterally. Absent: respiratory distress, wheezes, stridor, chest wall tenderness, prolonged expiratory - Cardiovascular Cardiovascular Exam: Present: regular rate, normal rhythm, normal heart sounds. Absent: systolic murmur, diastolic murmur, rubs, gallop - GI/Abdominal GI/Abdominal exam: Present: soft, normal bowel sounds. Absent: distended, tenderness, guarding, rebound, rigid, bruit, hernia - Rectal Rectal exam: Present: deferred - Extremities Exam Extremities exam: Present: normal inspection, full ROM, normal capillary refill. Absent: tenderness, pedal edema, joint swelling, calf tenderness - Back Exam Back exam: Present: normal inspection, full ROM. Absent: tenderness, CVA tenderness (R), CVA tenderness (L), muscle spasm, paraspinal tenderness, vertebral tenderness, rash noted - Neurological Exam Neurological exam: Present: alert, oriented X3, CN II-XII intact, normal gait, reflexes normal. Absent: motor sensory deficit - Expanded Neurological Exam Expanded Patient oriented to: Present: person, place, time Speech: Present: fluid speech Cranial nerves: EOM's Intact: Normal, Gag Reflex: Normal, Tongue Deviation: Normal, Nystagmus: Normal, Facial Sensation: Normal Cerebellar function: Finger to Nose: Normal, Heel to [place]: Normal, Romberg: Normal Upper motor neuron: [place] Neglect: Normal, Pronator Drift: Normal, Babinski Sign: Normal, Sensory Extinction: Normal Motor strength exam: RUE: 5, LUE: 5, RLE: 5, LLE: 5 Best Eye Response ([place]): (4) open spontaneously Best Motor Response ([place]): (6) obeys commands Best Verbal Response ([place]): (5) oriented [place] Total: 15 - Psychiatric Psychiatric exam: Present: normal affect, normal mood - Skin Skin exam: Present: warm, dry, intact, normal color. Absent: rash ED Course Vital Signs 02/16/19 15:14 Temperature 98.5 F Pulse Rate 78 Respiratory 18 Rate O2 Sat by Pulse 97 Oximetry ED Medical Decision Making - Lab Data Result diagrams: 02/16/19 15:20 02/16/19 15:20 Lab Results 02/16/19 02/16/19 Range/Units 15:20 15:20 WBC 7.5 (4.5-11.0) K/mm3 RBC 3.96 (3.65-5.03) M/mm3 Hgb 12.8 (10.1-14.3) gm/dl Hct 38.3 (30.3-42.9) % MCV 97 (79-97) fl MCH 32 (28-32) pg MCHC 33 (30-34) % RDW 14.8 (13.2-15.2) % Plt Count 362 (140-440) K/mm3 Lymph % (Auto) 22.9 (13.4-35.0) % [place] % (Auto) 4.4 (0.0-7.3) % Eos % (Auto) 2.3 (0.0-4.3) % Baso % (Auto) 0.4 (0.0-1.8) % Lymph # 1.7 (1.2-5.4) K/mm3 [place] # 0.3 (0.0-0.8) K/mm3 Eos # 0.2 (0.0-0.4) K/mm3 Baso # 0.0 (0.0-0.1) K/mm3 Seg Neutrophils % 70.0 (40.0-70.0) % Seg Neutrophils # 5.2 (1.8-7.7) K/mm3 Sodium 139 (137-145) mmol/L Potassium 3.8 (3.6-5.0) mmol/L Chloride 100.5 (98-107) mmol/L Carbon Dioxide 25 (22-30) mmol/L Anion Gap 17 mmol/L BUN 10 (7-17) mg/dL Creatinine 0.4 L (0.7-1.2) mg/dL Estimated GFR > 60 ml/min BUN/Creatinine Ratio 25 % Glucose 145 H (65-100) mg/dL Calcium 9.2 (8.4-10.2) mg/dL - EKG Data EKG shows normal: sinus rhythm, axis, intervals, QRS complexes, ST-T waves Rate: normal - EKG Data Interpretation: normal EKG (EKG interp by ED attending NSR no ST Elevated [place] ) - Radiology Data Radiology results: report reviewed, image reviewed Ordering Physician: JOSE LUIS AGUIRRE NP Date of Service: 02/16/19 Procedure(s): CT head/brain wo con Accession Number(s): [id number] cc: JOSE LUIS AGUIRRE NP CT BRAIN: 02/16/2019 INDICATION / CLINICAL INFORMATION: headache. COMPARISON: None available. FINDINGS: BRAIN/INTRACRANIAL STRUCTURES: Unenhanced CT images of the brain demonstrate no evidence of acute intracranial abnormality. Ventricles and sulci are normal in size and shape for a patient of this age. There is no evidence of hemorrhage or mass. There are no abnormal extra-axial fluid collections. EXTRACRANIAL STRUCTURES: Unremarkable. IMPRESSION: Negative unenhanced CT of the brain. All CT scans at this location are performed using dose reduction to ALARA by means of automated exposure control. Signer Name: Sander Roche MD Signed: 02/16/2019 4:32 PM Workstation Name: [id number] Transcribed By: AO Dictated By: Sander Roche MD Electronically Authenticated By: Sander Roche MD Signed Date/Time: 02/16/19 1632 DD/ 1630 TD/TT: - Medical Decision Making symptoms resolved, ua normal, ct head normal, ekg normal, ent exam normal plan, hctz, continue metformin follow up with pcp in in 2-3 days return to emergency if symptoms worsen. Critical care attestation.: If time is entered above; I have spent that time in minutes in the direct care of this critically ill patient, excluding procedure time. ED Disposition Clinical Impression: Dizziness HTN (hypertension) Qualifiers: Hypertension type: essential hypertension Qualified Code(s): I10 - Essential (primary) hypertension Disposition: TO HOME OR SELFCARE Is pt being admited?: No Does the pt Need Aspirin: No Condition: Stable Instructions: Hypertension (ED), Dizziness (ED) Prescriptions: metFORMIN [Glucophage] 1,000 mg PO BID #120 tablet hydroCHLOROthiazide [HCTZ] 25 mg PO QDAY #30 tablet Referrals: COTY CEDENO MD [Primary Care Provider] - 3-5 Days Forms: Work/School Release Form(ED) Time of Disposition: 23:16
[2019-02-16 22:43] LABS: Bilirubin,Urine NEG (Negative); Blood,Urine SM (Negative); Color,Urine Straw (Yellow); Mucus,Urine FEW /HPF; Protein,Urine <15 mg/dL mg/dL (Negative); Urobilinogen,Urine < 2.0 mg/dL (<2.0); WBC,Urine < 1.0 /HPF (0.0-6.0)
[2019-02-17 06:48] VITALS: BP 168/84
== END 2019-02-16 23:40 | disposition home or self-care (01) ==
LOC: ED 14:58
DX: R42 Dizziness and giddiness (principal); I10 Essential (primary) hypertension; K21.9 Gastro-esophageal reflux disease without esophagitis; E11.9 Type 2 diabetes mellitus without complications; Z90.49 Acquired absence of other specified parts of digestive tract; Z79.4 Long term (current) use of insulin
CPT/HCPCS: 36415; 70450; 80048; 81001; 85025; 93005; 93010